=== PATIENT | male | born 1950 | race Caucasian/White ===

== ENCOUNTER 2017-11-11 11:26 | Day surgery (SDC) | payer OTHER ==
[~2017-11-11] VITALS: Ht 188 cm; Wt 105.7 kg
[~2017-11-11 11:26] MED LIST: ELAVIL75 MG PO; HYTRIN2 MG PO; LYRICA200 MG PO; SENOKOT,SENN1 TABLET PO; SYNTHROID175 MCG PO; ULTRAM50 MG PO
== END 2017-11-11 17:20 | disposition home or self-care (01) ==
LOC: CATH 11:26
DX: I25.10 Atherosclerotic heart disease of native coronary artery without angina pectoris (principal); I25.82 Chronic total occlusion of coronary artery; F17.210 Nicotine dependence, cigarettes, uncomplicated; Z85.528 Personal history of other malignant neoplasm of kidney; Z90.5 Acquired absence of kidney; G62.9 Polyneuropathy, unspecified; I49.3 Ventricular premature depolarization; E03.9 Hypothyroidism, unspecified
CPT/HCPCS: C1769; C1887; J1200; J1644; J2250; J7040

== ENCOUNTER → 2018-03-09 | Outpatient (CLI) | payer OTHER ==
[~2018-03-09] VITALS: Ht 190.5 cm; Wt 104.3 kg
[~2018-03-09] MED LIST changes: +ASPIRIN81 M2 PO; +CRESTOR10 MG PO; +LYRICA150 MG PO; +LYRICA300 MG PO; +SYNTHROID150 MCG PO; -SYNTHROID175 MCG PO
== END | disposition home or self-care (01) ==
LOC: AMB 12:50
PROC: 0DJD8ZZ Inspection of Lower Intestinal Tract, Via Natural or Artificial Opening Endoscopic (ICD-10-PCS; principal; 2018-03-09)
DX: Z12.11 Encounter for screening for malignant neoplasm of colon (principal); E03.9 Hypothyroidism, unspecified; Z86.010 Personal history of colon polyps; Z85.528 Personal history of other malignant neoplasm of kidney; I25.10 Atherosclerotic heart disease of native coronary artery without angina pectoris; Z53.09 Procedure and treatment not carried out because of other contraindication